=== PATIENT | female | born 1945 | race Caucasian/White ===

== ENCOUNTER 2016-10-16 11:56 | Emergency (ER) | payer MEDICARE, OTHER ==
[~2016-10-16 11:56] MED LIST: ALBU2.5V5 NEB; ALEN70TA5 PO; AMIO200T2 PO; ARFO15VI INH; ASPI-482 PO; ASPI81TA9; ATORVASTATIN CA80 MG PO; AZIT250T6 PO; CARV12.52; CARV3.12 PO; CARV3.122 PO; CARV6.252 PO; CEFP100T PO; DIGO125T10; FLUT1DIS3 IH; FURO-69 PO; FURO40TA4 PO; HYDR-2762 PO; HYDR-79; LORA10TA3; LORA10TA3 PO; LOSA50TA2 PO; LOSA50TA6; LOSA50TA6 PO; METF500T4 PO; METO25TA4 PO; OMEP40CA5 PO; POLY17PO29 PO; POLY17PO3; PRED20TA PO; PRED50TA PO; PROAIR HFA8.5 GM INH; PROM118S2; SOTA80TA48 PO; SPIR25TA PO; TRIA1CAP3 PO
[2016-10-16 12:40] VITALS: BP 142/66
[2016-10-16] MEDS ORDERED: ONDA4TAB10 PO (12:59)
[2016-10-16] MEDS ORDERED: VALA1000 PO (12:59)
[2016-10-16] MEDS ORDERED: OXYC-323 PO (12:59)
--- NOTE | 2016-10-16 12:59 | PHYS DOC ---
Past Medical History Past Medical History: Cancer, CHF, COPD, Diabetes-Type II, Hypertension Additional Past Medical Histor: Lung Ca, "Borderline DM", "Irregular Heartbeat ", chemo Past Surgical History: Tubal ligation Additional Information: quit smoking 6 months ago Alcohol Use: None Drug Use: None Adult General Chief Complaint Chief Complaint: SKIN PROBLEM HPI HPI Patient is a 70 year old female presenting to the emergency department for evaluation of a rash that was first noted 3 days ago and has persisted and is now more painful. Pain and rash is in the L1-L2 distribution on the right side. Rashe is obvious zoster rash. She denies any fevers chills nausea vomiting or worsening shortness of breath. She is satting 94% on her baseline 2 L. She does get hypoxic and short of breath on exertion but that is nothing new for her. Review of Systems Review of Systems Constitutional: Denies fever or chills [] Respiratory: Denies new cough or shortness of breath [] Cardiovascular: No additional information not addressed in HPI [] GI: Denies abdominal pain, nausea, vomiting, bloody stools or diarrhea [] : Denies dysuria or hematuria [] Musculoskeletal: Denies back pain or joint pain [] Integument: + rash and skin lesions [] Neurologic: Denies headache, focal weakness or sensory changes [] Current Medications Current Medications Current Medications Medications (Trade) Dose Ordered Sig/Saritha Start Time Stop Time Status Last Admin Dose Admin Oxycodone/ Acetaminophen (Percocet 5/325) 1 tab 1X ONCE 10/16/16 13:00 10/16/16 13:01 DC Allergies Allergies Allergies Coded Allergies Type Severity Reaction Last Updated Verified No Known Drug Allergies 05/08/15 No Physical Exam Physical Exam Constitutional: Well developed, well nourished, no acute distress, non-toxic appearance. [] Cardiovascular:Heart rate regular rhythm, no murmur [] Lungs & Thorax: Bilateral breath sounds coarse with expiratory wheezing. Abdomen: Bowel sounds normal, soft, no tenderness, no masses, no pulsatile masses. [] Skin: L1 or L2 vesicular erythematous rash noted with no obvious secondary cellulitis. Current Patient Data Vital Signs Vital Signs Date Time Temp Pulse Resp B/P (MAP) Pulse Ox O2 Delivery O2 Flow Rate FiO2 10/16/16 12:40 98.3 97 24 142/66 (91) 74 Room Air 98.3 EKG EKG [] Radiology/Procedures Radiology/Procedures [] Course & Med Decision Making Course & Med Decision Making Patient with herpes zoster rash. Her last creatinine function was normal so she 'll be treated with 1 g of Valacyclovir 3 times daily. She will be given Percocet for pain and told to take NSAIDs as well. He was told to follow with her primary care provider in 2 days to ensure no secondary saline as develops and come back to the ER sooner with any worsening pain fevers vomiting or other general concerns. Dragon Disclaimer Dragon Disclaimer This electronic medical record was generated, in whole or in part, using a voice recognition dictation system. Departure Departure Impression: Primary Impression: Herpes zoster Disposition: HOME, SELF-CARE Condition: GOOD Referrals: LACEY STEINBERG MD (PCP) Patient Instructions: Herpes Zoster Virus Vaccine, Shingles Additional Instructions: TAKE 400MG OF IBUPROFEN EVERY 6 HOURS AND THE PERCOCET FOR BREAKTHROUGH PAIN. TAKE THE ANTIVIRAL WELL. FOLLOW WITH YOUR DOCTOR IN THE NEXT WEEK TO ENSURE IMPROVEMENT AND COME BACK TO THE ED SOONER WITH ANY NEW OR WORSENING SYMPTOMS. THANK YOU! Scripts Valacyclovir Hcl (VALACYCLOVIR) 1,000 Mg Tablet 1 TAB PO TID, #21 TAB Prov: NAYAN WRIGHT DO 10/16/16 Ondansetron (ZOFRAN ODT) 4 Mg Tab.rapdis 4 MG PO BID Y for NAUSEA/VOMITING, #10 TAB Prov: NAYAN WRIGHT DO 10/16/16 Oxycodone/Apap 5-325 (PERCOCET 5-325 MG TABLET) 1 Each Tablet 1 TAB PO PRN Q6HRS Y for PAIN, #30 TAB 0 Refills Prov: NAYAN WRIGHT DO 10/16/16 Problem Qualifiers Primary Impression: Herpes zoster Herpes zoster complications: without complications Qualified Codes: B02.9 - Zoster without complications NAYAN WRIGHT DO October 16, 2016 12:59
[2016-10-16] MEDS ORDERED: oxyCODONE/APAP 5/325 1 TAB TABLET PO ONE (13:00)
== END 2016-10-16 13:35 | disposition home or self-care (01) ==
LOC: ER 11:56
DX: B02.9 Zoster without complications (principal); I11.0 Hypertensive heart disease with heart failure; I50.9 Heart failure, unspecified; J44.9 Chronic obstructive pulmonary disease, unspecified; E11.9 Type 2 diabetes mellitus without complications; Z87.891 Personal history of nicotine dependence; Z92.21 Personal history of antineoplastic chemotherapy
CPT/HCPCS: 99284

== ENCOUNTER → 2017-01-22 | Outpatient (CLI) | payer MEDICARE, OTHER ==
[~2017-01-22] MED LIST changes: +ASPI-612; -ASPI81TA9; +ONDA4TAB10 PO; +OXYC-323 PO; +VALA1000 PO
--- NOTE | 2017-01-22 13:49 | RAD ---
CT chest without contrast 01/22/2017 at 1045 hours Indication: Lung cancer status post radiation treatment. Comparison: CT chest 07/20/2016, 01/16/2016 Technique: Multiple axial CT images of the chest were obtained without intravenous contrast. Findings: The thyroid gland is normal. The lack of intravenous contrast limits evaluation for mediastinal and hilar lymphadenopathy. No pathologically enlarged axillary, mediastinal or hilar lymph nodes are present. Heart size is within normal limits. Three-vessel coronary vascular calcification is present. Thoracic aorta is normal in course and caliber with atherosclerotic calcification. No pericardial effusion. There is a small left pleural effusion, improved since 07/20/2016. Mild centrilobular emphysema is present. Bronchial wall thickening is present compatible with bronchitis. There is a left infrahilar spiculated mass measuring 20 x 14 mm. This was previously observed. Minor area of consolidation which is significantly improved. It is difficult to make comparison to the last 2 prior examinations given airspace consolidation in this region, however when compared to 01/16/2016 there is relatively similar appearance of the mass, given differences in technique and degree of pleural effusion. No additional solid noncalcified pulmonary nodules are identified. No suspicious osseous lesions are identified. Impression: 1. Interval improvement in left lower lobe airspace consolidation. Left infrahilar mass is better visualized on the current examination and appears grossly similar when compared to prior examination from 01/16/2016, measuring approximately 20 x 14 mm. There is a small residual pleural effusion. No pathologically enlarged thoracic lymphadenopathy. 2. Resolution of right pleural effusion. Right lung is clear. 3. Mild centrilobular emphysema with suggestion of bronchitis compatible with COPD changes. PQRS Compliance Statement: One or more of the following individualized dose reduction techniques were utilized for this examination: 1. Automated exposure control 2. Adjustment of the mA and/or kV according to patient size 3. Use of iterative reconstruction technique
== END | disposition home or self-care (01) ==
LOC: CT 10:06
PROVIDERS: ATTEND Radiology Radiation Oncology
DX: C34.90 Malignant neoplasm of unspecified part of unspecified bronchus or lung (principal); J90 Pleural effusion, not elsewhere classified; J44.9 Chronic obstructive pulmonary disease, unspecified; Z92.3 Personal history of irradiation
CPT/HCPCS: 71250

== ENCOUNTER → 2017-05-26 | Outpatient (CLI) | payer MEDICARE, OTHER ==
[~2017-05-26] MED LIST changes: +OXYC-328 PO
--- NOTE | 2017-05-26 14:30 | RAD ---
Indication: Lung cancer status post treatment presenting with left chest wall pain. Technique: CT chest without IV contrast with multiplanar reformats. Comparison: Previous study from 01/22/2017 Findings: Limited study due to lack of IV contrast. Clear neck base. No axillary, hilar or mediastinal adenopathy. Heart is normal in size. Coronary artery disease noted. Atherosclerotic disease noted of the aortic arch and origin of arch vessels. Stable small left pleural effusion noted. Loss of left lung volume. Stable left lower lobe peribronchial thickening approximately measuring 2.7 x 1.9 cm with subpleural scarring. Mild diffuse centrilobular emphysema noted. Multiple predominantly right-sided pulmonary nodules noted. Index nodules as follows: 2 mm nodule right upper lobe (series 2 image 44). 3 mm nodule right upper lobe (series 2 image 31). 2 mm nodule peripheral right middle lobe (series 2 image 35). Subpleural 2 mm nodule in the right lower lobe (series 2 image 44). Cluster of nodules in the right lower lobe (series 2 image 33). Noncontrast appearance of the liver, spleen, pancreas, adrenals is within normal limits. Diffuse atherosclerotic disease of the abdominal aorta are noted. No suspicious bony lesions. Impression: Limited study due to lack of IV contrast. 1. Stable small left pleural effusion with adjacent pleural thickening and subpleural pleural scarring not significantly changed when compared to previous study from 01/22/2017. 2. Relatively stable left lower lobe central peribronchial ill-defined soft tissue which may represent scarring/fibrosis. Underlying pulmonary malignancy not ruled out. Attention on follow-up. 3. Multiple predominantly right lung nodules (2-3 mm). These are indeterminate and may be secondary to infectious, inflammatory or metastatic disease. Short-term follow-up in 3 months recommended. PQRS Compliance Statement: One or more of the following individualized dose reduction techniques were utilized for this examination: 1. Automated exposure control 2. Adjustment of the mA and/or kV according to patient size 3. Use of iterative reconstruction technique
== END | disposition home or self-care (01) ==
LOC: CT 09:40
PROVIDERS: ATTEND Radiology Radiation Oncology
DX: C34.90 Malignant neoplasm of unspecified part of unspecified bronchus or lung (principal); I25.10 Atherosclerotic heart disease of native coronary artery without angina pectoris; J90 Pleural effusion, not elsewhere classified
CPT/HCPCS: 71250

== ENCOUNTER 2017-07-24 14:02 | Emergency (ER) | payer MEDICARE, OTHER ==
[2017-07-24 14:47] LABS: ADD MAN DIFF? NO
[2017-07-24 14:51] LABS: BASO % 0 % (0-3); EOS # 0.2 x10^3/uL (0.0-0.7); EOS % 2 % (0-3); HEMATOCRIT 40.5 % (36.0-47.0); HEMOGLOBIN 12.8 g/dL (12.0-15.5); LYMPH # 0.9 x10^3/uL (1.0-4.8); LYMPH % 9 % (24-48); MEAN CORPUSCULAR HEMOGLOBIN 27 pg (25-35); MEAN CORPUSCULAR HGB CONC 32 g/dL (31-37); MEAN CORPUSCULAR VOLUME 86 fL (79-100); MONO # 1.2 x10^3/uL (0.0-1.1); MONO % 11 % (0-9); NEUT # 8.5 x10^3uL (1.8-7.7); NEUT % 78 % (31-73); PLATELET COUNT 381 x10^3/uL (140-400); RED BLOOD COUNT 4.71 x10^6/uL (3.50-5.40); RED CELL DISTRIBUTION WIDTH 14.1 % (11.5-14.5); WHITE BLOOD COUNT 10.9 x10^3/uL (4.0-11.0)
[2017-07-24] MEDS: IV NORMAL SALINE 500ML BAG 500 ML IV ×2 (14:54)
[2017-07-24 15:04] LABS: PARTIAL THROMBOPLASTIN TIME 30 SEC (24-38); PROTHROMBIN TIME PATIENT 12.8 SEC (11.7-14.0)
[2017-07-24 15:09] LABS: ANION GAP 0 (6-14); BLOOD UREA NITROGEN 25 mg/dL (7-20); BUN/CREATININE RATIO 36 (6-20); CALCIUM 8.6 mg/dL (8.5-10.1); CARBON DIOXIDE 42 mmol/L (21-32); CHLORIDE 100 mmol/L (98-107); CREATININE 0.7 mg/dL (0.6-1.0); GFR 82.3; GLUCOSE 121 mg/dL (70-99); POTASSIUM 4.1 mmol/L (3.5-5.1); SODIUM 142 mmol/L (136-145)
[2017-07-24 15:11] LABS: ALBUMIN 2.4 g/dL (3.4-5.0); ALBUMIN/GLOBULIN RATIO 0.4 (1.0-1.7); ALK PHOS 118 U/L (46-116); ALT (SGPT) 11 U/L (14-59); AST (SGOT) 19 U/L (15-37); TOTAL BILIRUBIN 0.1 mg/dL (0.2-1.0); TOTAL PROTEIN 7.9 g/dL (6.4-8.2)
[2017-07-24 15:16] LABS: TROPONINI < 0.017 ng/mL (0.000-0.055)
[2017-07-24 15:17] LABS: NT-PRO BNP 652 pg/mL (0-124)
[2017-07-24 15:58] LABS: BILIRUBIN,URINE SMALL (NEG); CLARITY,URINE CLEAR; COLOR,URINE AMBER; GLUCOSE,URINE NEGATIVE (NEG); NITRITE,URINE NEGATIVE (NEG); PROTEIN,URINE NEGATIVE (NEG-TRACE)
[2017-07-24 16:09] LABS: BACTERIA,URINE FEW /HPF (0-FEW); RBC,URINE 0 /HPF (0-2); SQUAMOUS EPITHELIAL CELL,UR OCC /LPF; WBC,URINE 20-40 /HPF (0-4)
== END 2017-07-24 16:53 | disposition home or self-care (01) ==
LOC: ER 14:02
DX: R42 Dizziness and giddiness (principal); N39.0 Urinary tract infection, site not specified; I11.0 Hypertensive heart disease with heart failure; I50.9 Heart failure, unspecified; E11.9 Type 2 diabetes mellitus without complications; J44.9 Chronic obstructive pulmonary disease, unspecified; Z98.51 Tubal ligation status
CPT/HCPCS: 36415; 80053; 81001; 83735; 83880; 84484; 85025; 85610; 85730; 87086; 87186; 93005; 96360; 99285-25; J7040

== ENCOUNTER → 2017-10-16 | Outpatient (CLI) | payer MEDICARE, OTHER | END | disposition home or self-care (01) | LOC: CT 08:57 | DX: C34.92 Malignant neoplasm of unspecified part of left bronchus or lung (principal); I70.0 Atherosclerosis of aorta; J18.1 Lobar pneumonia, unspecified organism; J90 Pleural effusion, not elsewhere classified | CPT/HCPCS: 71250 ==

== ENCOUNTER 2018-01-10 19:09 | Inpatient (IN) | payer MEDICARE, OTHER ==
[2018-01-10] MEDS: ACETAMINOPHEN 325 MG TABLET. PO (19:30)
[2018-01-10 19:46] LABS: BASO # 0.1 x10^3/uL (0.0-0.2); BASO % 1 % (0-3); EOS # 0.1 x10^3/uL (0.0-0.7); EOS % 0 % (0-3); HEMATOCRIT 46.3 % (36.0-47.0); HEMOGLOBIN 14.8 g/dL (12.0-15.5); LYMPH # 0.5 x10^3/uL (1.0-4.8); LYMPH % 3 % (24-48); MEAN CORPUSCULAR HEMOGLOBIN 28 pg (25-35); MEAN CORPUSCULAR HGB CONC 32 g/dL (31-37); MEAN CORPUSCULAR VOLUME 87 fL (79-100); MONO # 1.3 x10^3/uL (0.0-1.1); MONO % 7 % (0-9); NEUT # 18.1 x10^3uL (1.8-7.7); NEUT % 90 % (31-73); PLATELET COUNT 260 x10^3/uL (140-400); RED BLOOD COUNT 5.33 x10^6/uL (3.50-5.40); RED CELL DISTRIBUTION WIDTH 15.6 % (11.5-14.5); WHITE BLOOD COUNT 20.1 x10^3/uL (4.0-11.0)
[2018-01-10 19:47] LABS: ADD MAN DIFF? YES
[2018-01-10 19:51] LABS: BILIRUBIN,URINE MODERATE (NEG); CLARITY,URINE CLEAR; COLOR,URINE AMBER; GLUCOSE,URINE NEGATIVE (NEG); NITRITE,URINE NEGATIVE (NEG); PH,URINE 5.5; PROTEIN,URINE 30 mg/dL (NEG-TRACE)
[2018-01-10 19:54] LABS: BACTERIA,URINE FEW /HPF (0-FEW); RBC,URINE 0 /HPF (0-2); SQUAMOUS EPITHELIAL CELL,UR FEW /LPF; WBC,URINE OCC /HPF (0-4)
[2018-01-10 19:55] LABS: INR 1.1 (0.8-1.1); PROTHROMBIN TIME PATIENT 13.3 SEC (11.7-14.0)
[2018-01-10 19:56] LABS: PARTIAL THROMBOPLASTIN TIME 27 SEC (24-38)
[2018-01-10] MEDS: IBUPROFEN 400 MG TABLET. PO (19:57)
[2018-01-10] MEDS: IV NORMAL SALINE 1000ML BAG 1,000 ML IV (19:57)
[2018-01-10 20:01] LABS: ANION GAP 2 (6-14); BLOOD UREA NITROGEN 21 mg/dL (7-20); BUN/CREATININE RATIO 35 (6-20); CARBON DIOXIDE 41 mmol/L (21-32); CHLORIDE 98 mmol/L (98-107); CREATININE 0.6 mg/dL (0.6-1.0); GLUCOSE 85 mg/dL (70-99); POTASSIUM 4.6 mmol/L (3.5-5.1); SODIUM 141 mmol/L (136-145)
[2018-01-10 20:07] LABS: ALBUMIN/GLOBULIN RATIO 0.6 (1.0-1.7); ALK PHOS 118 U/L (46-116); ALT (SGPT) 26 U/L (14-59); AST (SGOT) 20 U/L (15-37); CREATINE KINASE 36 U/L (26-192); TOTAL BILIRUBIN 1.2 mg/dL (0.2-1.0); TOTAL PROTEIN 7.8 g/dL (6.4-8.2)
[2018-01-10 20:10] LABS: % BANDS 12 % (0-9); % LYMPHS 4 % (24-48); % MONOS 4 % (0-10); % SEGS 80 % (35-66); PLT ESTIMATE ADEQUATE (ADEQUATE)
[2018-01-10 20:16] LABS: NT-PRO BNP 1605 pg/mL (0-124); TROPONINI < 0.017 ng/mL (0.000-0.055)
[2018-01-10 20:16] LABS: CREATINE KINASE 38 U/L (26-192)
[2018-01-10 20:17] LABS: CKMB MASS < 0.5 ng/mL (0.0-3.6)
[2018-01-10 20:20] LABS: LACTIC ACID 1.1 mmol/L (0.4-2.0)
[2018-01-10] MEDS ORDERED: CONTRAST GIVEN. MC (22:15)
[2018-01-10] MEDS: IOHEXOL 300 MG/ML 100ML VIAL. IV (22:20)
[2018-01-11] MEDS ORDERED: ONDANSETRON PF 4 MG/2 ML VIAL. IV
[2018-01-11] MEDS: IV NORMAL SALINE 1000ML BAG 1,000 ML IV ×5 (00:30→20:43)
[2018-01-11] MEDS: IPRATRPIUM/ALBUTEROL 0.5/2.5MG 3 ML NEBU. NEB ×6 (09:19→20:08)
[2018-01-11] MEDS ORDERED: ALBUTEROL SULFATE 2.5 MG/3 ML NEBU. NEB (11:45)
[2018-01-11] MEDS: PROMETH/CODEINE 6.25/10MG 5 ML SYRUP. PO (11:59)
[2018-01-11] MEDS: FUROSEMIDE 20 MG TABLET PO (11:59)
[2018-01-11] MEDS: LOSARTAN POTASSIUM 50 MG TABLET. PO (12:00)
[2018-01-11] MEDS: AMIODARONE HCL 200 MG TABLET. PO (12:00)
[2018-01-11] MEDS ORDERED: POLYETHYLENE GLYCOL 3350 17 GM PACKET. PO (12:00)
[2018-01-11] MEDS: VANCOMYCIN 1.5 GM in IV NORMAL SALINE 500ML BAG 500 ML IV (14:16)
[2018-01-11 15:12] LABS: BASE EXCESS ABG 15 mmol/L (-3-3); HCO3 ABG 49 mmol/L (21-28); PO2 ABG 80 mmHg (65-108); SAT O2 ABG 95 % (92-99)
[2018-01-11] MEDS ORDERED: NOREPINEPHRIN 8MG/250ML PREMIX 250 ML IV (15:19)
[2018-01-11 15:57] LABS: FIO2 ABG 50; PCO2 ABG 130 mmHg (35-46)
[2018-01-11] MEDS: VANCOMYCIN PER PHARMACY MC (16:01)
[2018-01-11] MEDS: ENOXAPARIN 40 MG/0.4 ML SYRINGE. SQ (16:07)
[2018-01-11] MEDS: NOREPINEPHRIN 8MG/250ML PREMIX 250 ML IV (16:10)
[2018-01-11 16:29] LABS: LACTIC ACID 1.7 mmol/L (0.4-2.0)
[2018-01-11 17:31] LABS: BASE EXCESS ABG 8 mmol/L (-3-3); HCO3 ABG 39 mmol/L (21-28); PH ABG 7.23 (7.35-7.45); PO2 ABG 75 mmHg (65-108); SAT O2 ABG 94 % (92-99)
[2018-01-11 17:33] LABS: FIO2 ABG 35; PCO2 ABG 95 mmHg (35-46)
[2018-01-11] MEDS: BUDESONIDE 0.5 MG/2 ML NEBU. NEB (20:08)
[2018-01-11] MEDS: ACETAMINOPHEN 325 MG TABLET. PO (20:19)
[2018-01-12 05:34] LABS: ADD MAN DIFF? NO
[2018-01-12 06:34] LABS: ANION GAP 0 (6-14); BLOOD UREA NITROGEN 20 mg/dL (7-20); CALCIUM 8.3 mg/dL (8.5-10.1); CARBON DIOXIDE 39 mmol/L (21-32); CHLORIDE 107 mmol/L (98-107); CHOLESTEROL 131 mg/dL (0-200); CREATININE 0.5 mg/dL (0.6-1.0); GFR 120.9; GLUCOSE 81 mg/dL (70-99); HDLC 44 mg/dL (40-60); LDLC 75 mg/dL (0-100); NON-HDL CHOLESTEROL 87 mg/dL (0-129); POTASSIUM 3.9 mmol/L (3.5-5.1); SODIUM 146 mmol/L (136-145); TRIGLYCERIDES 62 mg/dL (0-150); VLDLC 12 mg/dL (0-40)
[2018-01-12] MEDS: IV NORMAL SALINE 1000ML BAG 1,000 ML IV (06:45)
[2018-01-12 06:54] LABS: THYROID STIM HORMONE (TSH) 0.701 uIU/mL (0.358-3.74)
[2018-01-12 06:58] LABS: BASO % 0 % (0-3); EOS # 0.2 x10^3/uL (0.0-0.7); EOS % 1 % (0-3); HEMOGLOBIN 12.9 g/dL (12.0-15.5); LYMPH # 0.7 x10^3/uL (1.0-4.8); LYMPH % 6 % (24-48); MEAN CORPUSCULAR HEMOGLOBIN 28 pg (25-35); MEAN CORPUSCULAR HGB CONC 31 g/dL (31-37); MEAN CORPUSCULAR VOLUME 89 fL (79-100); MONO # 1.3 x10^3/uL (0.0-1.1); MONO % 10 % (0-9); NEUT # 10.8 x10^3uL (1.8-7.7); NEUT % 83 % (31-73); PLATELET COUNT 223 x10^3/uL (140-400); RED BLOOD COUNT 4.69 x10^6/uL (3.50-5.40); RED CELL DISTRIBUTION WIDTH 15.8 % (11.5-14.5)
[2018-01-12] MEDS: IPRATRPIUM/ALBUTEROL 0.5/2.5MG 3 ML NEBU. NEB ×4 (08:20→19:49)
[2018-01-12] MEDS: BUDESONIDE 0.5 MG/2 ML NEBU. NEB ×2 (08:21→19:49)
[2018-01-12 08:39] LABS: BASE EXCESS ABG 6 mmol/L (-3-3); HCO3 ABG 36 mmol/L (21-28); PH ABG 7.26 (7.35-7.45); PO2 ABG 83 mmHg (65-108); SAT O2 ABG 96 % (92-99)
[2018-01-12 08:45] LABS: PCO2 ABG 84 mmHg (35-46)
[2018-01-12 08:46] LABS: FIO2 ABG 35
[2018-01-12] MEDS: PANTOPRAZOLE IV PUSH 40 MG VIAL. IVP ×2 (10:15→20:35)
[2018-01-12] MEDS: VANCOMYCIN PER PHARMACY MC (10:19)
[2018-01-12] MEDS: LOSARTAN POTASSIUM 50 MG TABLET. PO (15:57)
[2018-01-12] MEDS: AMIODARONE HCL 200 MG TABLET. PO (15:57)
[2018-01-12] MEDS: FUROSEMIDE 20 MG TABLET PO (15:57)
[2018-01-12] MEDS: ENOXAPARIN 40 MG/0.4 ML SYRINGE. SQ (15:57)
[2018-01-12] MEDS: VANCOMYCIN 1 GM in IV NORMAL SALINE 250ML 250 ML IV (15:57)
[2018-01-12 17:00] LABS: BASE EXCESS ABG 8 mmol/L (-3-3); HCO3 ABG 38 mmol/L (21-28); PH ABG 7.27 (7.35-7.45); PO2 ABG 70 mmHg (65-108); SAT O2 ABG 93 % (92-99)
[2018-01-12 17:17] LABS: FIO2 ABG 35; PCO2 ABG 85 mmHg (35-46)
[2018-01-12] MEDS: oxyCODONE/APAP 10/325 1 TAB TABLET PO (20:34)
[2018-01-12] MEDS: NYSTATIN TOPICAL POWDER 15GM BOTTLE. TP (20:35)
[2018-01-13 04:33] LABS: ADD MAN DIFF? NO
[2018-01-13 04:40] LABS: BASO % 1 % (0-3); EOS # 0.2 x10^3/uL (0.0-0.7); EOS % 2 % (0-3); HEMATOCRIT 42.1 % (36.0-47.0); HEMOGLOBIN 13.1 g/dL (12.0-15.5); LYMPH # 0.8 x10^3/uL (1.0-4.8); LYMPH % 9 % (24-48); MEAN CORPUSCULAR HEMOGLOBIN 28 pg (25-35); MEAN CORPUSCULAR HGB CONC 31 g/dL (31-37); MEAN CORPUSCULAR VOLUME 89 fL (79-100); MONO # 1.2 x10^3/uL (0.0-1.1); MONO % 14 % (0-9); NEUT # 6.3 x10^3uL (1.8-7.7); NEUT % 74 % (31-73); PLATELET COUNT 214 x10^3/uL (140-400); RED BLOOD COUNT 4.73 x10^6/uL (3.50-5.40); RED CELL DISTRIBUTION WIDTH 15.9 % (11.5-14.5); WHITE BLOOD COUNT 8.5 x10^3/uL (4.0-11.0)
[2018-01-13 05:02] LABS: BLOOD UREA NITROGEN 14 mg/dL (7-20); CARBON DIOXIDE 39 mmol/L (21-32); CHLORIDE 107 mmol/L (98-107); CREATININE 0.6 mg/dL (0.6-1.0); GLUCOSE 95 mg/dL (70-99); POTASSIUM 3.8 mmol/L (3.5-5.1); SODIUM 145 mmol/L (136-145)
[2018-01-13] MEDS: BUDESONIDE 0.5 MG/2 ML NEBU. NEB ×2 (06:54→19:27)
[2018-01-13] MEDS: IPRATRPIUM/ALBUTEROL 0.5/2.5MG 3 ML NEBU. NEB ×4 (06:54→19:27)
[2018-01-13] MEDS: VANCOMYCIN PER PHARMACY MC (09:17)
[2018-01-13] MEDS: FUROSEMIDE 20 MG TABLET PO (10:17)
[2018-01-13] MEDS: LOSARTAN POTASSIUM 50 MG TABLET. PO (10:17)
[2018-01-13] MEDS: PANTOPRAZOLE IV PUSH 40 MG VIAL. IVP (10:17)
[2018-01-13] MEDS: AMIODARONE HCL 200 MG TABLET. PO (10:18)
[2018-01-13] MEDS: NYSTATIN TOPICAL POWDER 15GM BOTTLE. TP ×2 (10:18→21:48)
[2018-01-13] MEDS: AMINO AC 3%/ELECTROLYTE/GLYCER 1,000 ML IV ×2 (11:03→22:45)
[2018-01-13 12:17] LABS: BASE EXCESS ABG 4 mmol/L (-3-3); HCO3 ABG 35 mmol/L (21-28); PH ABG 7.24 (7.35-7.45); PO2 ABG 63 mmHg (65-108); SAT O2 ABG 92 % (92-99)
[2018-01-13 13:51] LABS: VANC TR 4.9 mcg/mL (10.0-20.0)
[2018-01-13 14:21] LABS: FIO2 ABG 35; PCO2 ABG 83 mmHg (35-46)
[2018-01-13] MEDS: VANCOMYCIN 1 GM in IV NORMAL SALINE 250ML 250 ML IV (15:55)
[2018-01-13] MEDS: ENOXAPARIN 40 MG/0.4 ML SYRINGE. SQ (15:56)
[2018-01-13] MEDS: PROMETH/CODEINE 6.25/10MG 5 ML SYRUP. PO (23:30)
[2018-01-14] MEDS: PANTOPRAZOLE IV PUSH 40 MG VIAL. IVP (07:30)
[2018-01-14] MEDS: IPRATRPIUM/ALBUTEROL 0.5/2.5MG 3 ML NEBU. NEB ×4 (07:57→20:19)
[2018-01-14] MEDS: BUDESONIDE 0.5 MG/2 ML NEBU. NEB ×2 (07:58→20:19)
[2018-01-14] MEDS: VANCOMYCIN PER PHARMACY MC (08:54)
[2018-01-14] MEDS: FUROSEMIDE 20 MG TABLET PO (09:17)
[2018-01-14] MEDS: LOSARTAN POTASSIUM 50 MG TABLET. PO (09:18)
[2018-01-14] MEDS: AMIODARONE HCL 200 MG TABLET. PO (09:18)
[2018-01-14] MEDS: NYSTATIN TOPICAL POWDER 15GM BOTTLE. TP ×2 (09:54→21:01)
[2018-01-14] MEDS: VANCOMYCIN 1 GM in IV NORMAL SALINE 250ML 250 ML IV ×2 (09:54→21:09)
[2018-01-14] MEDS: FUROSEMIDE 20 MG/2 ML VIAL. IVP (09:54)
[2018-01-14] MEDS: ENOXAPARIN 40 MG/0.4 ML SYRINGE. SQ (16:07)
[2018-01-14] MEDS: PROMETH/CODEINE 6.25/10MG 5 ML SYRUP. PO (21:07)
[2018-01-15] MEDS: oxyCODONE/APAP 10/325 1 TAB TABLET PO ×2 (01:07→21:11)
[2018-01-15] MEDS: PANTOPRAZOLE IV PUSH 40 MG VIAL. IVP (05:40)
[2018-01-15] MEDS: IPRATRPIUM/ALBUTEROL 0.5/2.5MG 3 ML NEBU. NEB ×4 (07:00→19:17)
[2018-01-15] MEDS: BUDESONIDE 0.5 MG/2 ML NEBU. NEB ×2 (07:01→19:17)
[2018-01-15 08:49] LABS: ADD MAN DIFF? NO
[2018-01-15] MEDS: LOSARTAN POTASSIUM 50 MG TABLET. PO (08:49)
[2018-01-15] MEDS: FUROSEMIDE 20 MG TABLET PO (08:49)
[2018-01-15] MEDS: AMIODARONE HCL 200 MG TABLET. PO (08:49)
[2018-01-15 08:52] LABS: BASO % 1 % (0-3); EOS # 0.2 x10^3/uL (0.0-0.7); EOS % 3 % (0-3); HEMATOCRIT 42.5 % (36.0-47.0); HEMOGLOBIN 13.4 g/dL (12.0-15.5); LYMPH # 1.1 x10^3/uL (1.0-4.8); LYMPH % 15 % (24-48); MEAN CORPUSCULAR HEMOGLOBIN 27 pg (25-35); MEAN CORPUSCULAR HGB CONC 31 g/dL (31-37); MEAN CORPUSCULAR VOLUME 87 fL (79-100); MONO # 1.1 x10^3/uL (0.0-1.1); MONO % 14 % (0-9); NEUT # 5.2 x10^3uL (1.8-7.7); NEUT % 68 % (31-73); PLATELET COUNT 223 x10^3/uL (140-400); RED BLOOD COUNT 4.88 x10^6/uL (3.50-5.40); WHITE BLOOD COUNT 7.6 x10^3/uL (4.0-11.0)
[2018-01-15] MEDS: NYSTATIN TOPICAL POWDER 15GM BOTTLE. TP ×2 (09:00→21:07)
[2018-01-15 09:09] LABS: BLOOD UREA NITROGEN 12 mg/dL (7-20); CALCIUM 8.5 mg/dL (8.5-10.1); CHLORIDE 98 mmol/L (98-107); CREATININE 0.5 mg/dL (0.6-1.0); GFR 120.9; GLUCOSE 102 mg/dL (70-99); POTASSIUM 3.4 mmol/L (3.5-5.1); SODIUM 143 mmol/L (136-145)
[2018-01-15 09:10] LABS: CARBON DIOXIDE > 45 mmol/L (21-32)
[2018-01-15] MEDS: VANCOMYCIN PER PHARMACY MC (09:55)
[2018-01-15] MEDS ORDERED: VANCOMYCIN 750 MG in IV NORMAL SALINE 250ML 250 ML IV (11:00)
[2018-01-15] MEDS: ENOXAPARIN 40 MG/0.4 ML SYRINGE. SQ (17:02)
[2018-01-15] MEDS: ZOLPIDEM 5 MG TABLET. PO (21:07)
[2018-01-16] MEDS: BUDESONIDE 0.5 MG/2 ML NEBU. NEB (08:06)
[2018-01-16] MEDS: IPRATRPIUM/ALBUTEROL 0.5/2.5MG 3 ML NEBU. NEB ×2 (08:06→12:00)
[2018-01-16] MEDS: LOSARTAN POTASSIUM 50 MG TABLET. PO (08:40)
[2018-01-16] MEDS: NYSTATIN TOPICAL POWDER 15GM BOTTLE. TP (08:40)
[2018-01-16] MEDS: AMIODARONE HCL 200 MG TABLET. PO (08:40)
[2018-01-16] MEDS: PANTOPRAZOLE 40 MG TABLET.DR. PO (08:40)
[2018-01-16] MEDS: FUROSEMIDE 20 MG TABLET PO (08:40)
== END 2018-01-16 13:06 | disposition home health service (06) | DRG 871 ==
LOC: 6 SOUTH 01-11 00:20 → 5 SOUTH 01-14 10:14 → ER 19:09 → 1 WEST ICU 01-11 15:07
PROC: 5A09357 Assistance with Respiratory Ventilation, Less than 24 Consecutive Hours, Continuous Positive Airway Pressure (ICD-10-PCS; principal; 2018-01-11)
PROC: 5A09357 Assistance with Respiratory Ventilation, Less than 24 Consecutive Hours, Continuous Positive Airway Pressure (ICD-10-PCS; 2018-01-12)
PROC: 5A09357 Assistance with Respiratory Ventilation, Less than 24 Consecutive Hours, Continuous Positive Airway Pressure (ICD-10-PCS; 2018-01-14)
DX: A41.9 Sepsis, unspecified organism (principal); J96.22 Acute and chronic respiratory failure with hypercapnia; J15.6 Pneumonia due to other Gram-negative bacteria; J15.9 Unspecified bacterial pneumonia; I50.22 Chronic systolic (congestive) heart failure; E46 Unspecified protein-calorie malnutrition; J44.0 Chronic obstructive pulmonary disease with (acute) lower respiratory infection; J44.1 Chronic obstructive pulmonary disease with (acute) exacerbation; Z66 Do not resuscitate; I11.0 Hypertensive heart disease with heart failure; E11.9 Type 2 diabetes mellitus without complications; E78.5 Hyperlipidemia, unspecified; F17.200 Nicotine dependence, unspecified, uncomplicated; Z51.5 Encounter for palliative care; Z68.24 Body mass index [BMI] 24.0-24.9, adult; Z85.118 Personal history of other malignant neoplasm of bronchus and lung; Z98.51 Tubal ligation status; Z92.21 Personal history of antineoplastic chemotherapy; Z99.81 Dependence on supplemental oxygen; Z92.3 Personal history of irradiation; Z82.49 Family history of ischemic heart disease and other diseases of the circulatory system; Z80.7 Family history of other malignant neoplasms of lymphoid, hematopoietic and related tissues
CPT/HCPCS: 36415; 36600; 71045; 71046; 71260; 80048; 80053; 80061; 80202; 81001; 82550; 82553; 82805; 83605; 83880; 84443; 84484; 85007; 85025; 85610; 85730; 87040; 87070; 87086; 87205; 93005; 93306; 94640; 94660; 94760; 96365; 96366; 97110-GP; 97116-GP; 97162-GP; 97166-GO; 97530-GO; 97530-GP; 97535-GO; 99285; 99285-25; C9113; J1650; J1956; J3370; J7030; J7040; J7050; J7620; J7626; Q9967